=== PATIENT | female | born 1945 | race Caucasian/White ===

== ENCOUNTER 2019-08-28 09:53 | Emergency (ER) | payer MEDICARE, OTHER ==
[~2019-08-28] VITALS: Ht 152.4 cm; Wt 62.4 kg
[~2019-08-28 09:53] MED LIST: AMLO-150 PO; ASCO10004 PO; ASPI325T17 PO; CHOL200024 PO; DIAZ10TA PO; DICL100G19 TP; ESTROGEN-METHYLTEST PO; FLUTICASONE NAS; HYDR1TAB13 PO; HYDR50TA3; LAXATIVE PO; LEVO150C2 PO; LORA0.5T; LORA0.5T PO; MILK THISTLE PO; OMEG1CAP6 PO; OMEP-110 PO; OXYC-307 PO; PHEN37.53 PO; POTA10TA11 PO; SERT100T PO; SIMV40TA; SIMV40TA20 PO; TRIA1CAP3 PO; TURMERIC PO; VITAMIN B-12 PO
[2019-08-28 10:05] VITALS: BP 151/67
--- NOTE | 2019-08-28 10:42 | NUR ---
PT C/O LEFT FOOT AND LOWER EXTREMITY NUMBNESS WITH SHARP NERVE TYPE PAIN. 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 PAIN AND NUMBNESS WORSE THAN NORMAL.
[2019-08-28] MEDS ORDERED: HYDROcodone/APAP 5/325 TABLET PO PRN (11:00)
[2019-08-28] MEDS ORDERED: HYDROcodone/APAP 5/325 TABLET ONE (11:15)
== END 2019-08-28 12:33 | disposition home or self-care (01) ==
LOC: ED 12:27
DX: M79.672 Pain in left foot (principal); I10 Essential (primary) hypertension; E78.5 Hyperlipidemia, unspecified; E03.9 Hypothyroidism, unspecified; Z90.710 Acquired absence of both cervix and uterus; Z90.89 Acquired absence of other organs
CPT/HCPCS: 99283

== ENCOUNTER 2020-06-07 15:12 | Emergency (ER) | payer MEDICARE ==
[~2020-06-07] VITALS: Ht 152.4 cm; Wt 62.7 kg
[~2020-06-07 15:12] MED LIST changes: +ASCO100018 PO; -ASCO10004 PO
--- NOTE | 2020-06-07 15:43 | NUR ---
PATIENT WALKED BACK FROM TRIAGE WITH CHIEF C/O COVID + LAST WEEK. PATIENT STARTED ABX 5 DAYS AGO, AND SYMPTOMS HAVE NOT GOTTEN BETTER PER PATIENT. PATIENT HAD CHEST XRAY DONE THIS MORNING THAT SHOWED "PNEUMONIA." PATIENT'S O2 SATURATION IS 94% ON RA. ERMD AT BEDSIDE FOR EVALUATION./
[2020-06-07] MEDS ORDERED: AZITHROMYCIN 500 MG TABLET PO ONE (16:00)
--- NOTE | 2020-06-07 16:22 | NUR ---
PATIENT TO IMAGING.
[2020-06-07] MEDS ORDERED: AZITHROMYCIN 250 MG TABLET ONE (16:27)
[2020-06-07] MEDS ORDERED: CEFTRIAXONE 1,000 MG ONE ×2 (17:21→17:25)
[2020-06-07] MEDS ORDERED: CEFTRIAXONE 1,000 MG IM ONE (17:30)
--- NOTE | 2020-06-07 17:37 | NUR ---
REPORT GIVEN TO CHRISSY PARKS
[2020-06-07 18:01] VITALS: BP 142/67
--- NOTE | 2020-06-07 18:02 | NUR ---
Patient and spouse given discharge instructions and prescription and they have confirmed that they understand the instructions. Patient ambulatory with steady gait from ED to private vehicle.
== END 2020-06-07 18:03 | disposition home or self-care (01) ==
LOC: ED 16:26
DX: U07.1 COVID-19 (principal); J18.9 Pneumonia, unspecified organism; R05 Cough; I10 Essential (primary) hypertension; E03.9 Hypothyroidism, unspecified; R53.83 Other fatigue; R06.02 Shortness of breath
CPT/HCPCS: 71046; 96372; 99283; J0696

== ENCOUNTER → 2020-11-20 | Outpatient (CLI) | payer MEDICARE ==
[~2020-11-20] MED LIST changes: -HYDR50TA3; +HYDR50TA6; -OXYC-307 PO; +OXYC-380 PO
== END | disposition home or self-care (01) ==
LOC: CFH 12:25 → EDSTATUS 12:30
PROVIDERS: ATTEND Orthopaedic Surgery
DX: M17.12 Unilateral primary osteoarthritis, left knee (principal)

== ENCOUNTER → 2020-12-23 | Outpatient (CLI) | payer MEDICARE ==
[~2020-12-23] MED LIST changes: +BUPR150T73 PO; +GABA300C PO; +GINGER PO; +HYDR-2214 PO; +MAGNESIUM PO; +MELO15TA24 PO; +MULT-658 PO; +ZINC PO; +[UNRECOGNIZED DRUG - OTHER] PO
[2020-12-23 11:37] LABS: ANION GAP 5 mmol/L (5-15); CALCIUM 9.7 mg/dL (8.5-10.1); CHLORIDE 109 mmol/L (98-107)
[2020-12-23 11:40] LABS: ALANINE AMINOTRANSFERASE 27 U/L (12-78); ALKALINE PHOSPHATASE 65 U/L (45-117); BILIRUBIN,TOTAL 0.4 mg/dL (0.2-1.0); CREATININE 0.85 mg/dL (0.55-1.02); TOTAL PROTEIN 7.5 g/dL (6.4-8.2)
== END | disposition home or self-care (01) ==
LOC: STAR 10:05
PROVIDERS: ATTEND Orthopaedic Surgery
DX: Z01.818 Encounter for other preprocedural examination (principal); M65.321 Trigger finger, right index finger; G56.01 Carpal tunnel syndrome, right upper limb
CPT/HCPCS: 36415; 80053; 93005

== ENCOUNTER 2021-01-01 10:57 | Day surgery (SDC) | payer MEDICARE ==
[~2021-01-01] VITALS: Ht 149.9 cm; Wt 64.0 kg
[2021-01-01 11:26] VITALS: BP 164/89
[2021-01-01] MEDS ORDERED: LACTATED RINGERS 1,000 ML IV SCH (11:30)
[2021-01-01] MEDS ORDERED: CHLORHEXIDINE 15 ML UDC ONE (11:36)
[2021-01-01] MEDS ORDERED: CHLORHEXIDINE 15 ML UDC PO ONE (12:00)
[2021-01-01] MEDS ORDERED: EPINEPHRINE 1 MG/ML, 1ML ONE (12:14)
[2021-01-01] MEDS ORDERED: BUPIVACAINE/PF 0.5% ONE (12:14)
[2021-01-01] MEDS ORDERED: HYDROmorphone 1 MG/ML, 1ML INJ IVPush PRN (14:00)
[2021-01-01] MEDS ORDERED: EPHEDRINE 50 MG/ML, 1ML IVPush PRN (14:00)
[2021-01-01] MEDS ORDERED: FENTANYL PF 100 MCG/2ML IV PRN (14:00)
[2021-01-01] MEDS ORDERED: METHOCARBAMOL 1,000 MG in DEXTROSE 5% 100 ML IV PRN (14:00)
[2021-01-01] MEDS ORDERED: hydrALAzine 20 MG/ML, 1ML IV PRN (14:00)
[2021-01-01] MEDS ORDERED: LABETALOL 5MG/ML, 20ML IV PRN (14:00)
[2021-01-01] MEDS ORDERED: ACETAMINOPHEN 325 MG TABLET PO PRN (14:00)
[2021-01-01] MEDS ORDERED: ONDANSETRON 2MG/ML, 2ML IVPush PRN (14:00)
[2021-01-01] MEDS ORDERED: OXYcodone 5 MG/5 ML ORAL.SOL UDC PO PRN (14:00)
[2021-01-01] MEDS ORDERED: LORazepam 2 MG/ML, 1ML IVPush PRN (14:00)
[2021-01-01] MEDS ORDERED: PROMETHAZINE 25 MG/ML, 1ML IVPush PRN (14:00)
[2021-01-01] MEDS ORDERED: FENTANYL PF 250 MCG/5ML ONE (14:20)
[2021-01-01] MEDS ORDERED: PROPOFOL 10 MG/ML, 20ML ONE (17:53)
== END 2021-01-01 15:15 | disposition home or self-care (01) ==
LOC: OUT 10:57
PROVIDERS: ATTEND Orthopaedic Surgery
DX: G56.01 Carpal tunnel syndrome, right upper limb (principal); M65.321 Trigger finger, right index finger; M65.331 Trigger finger, right middle finger; M19.90 Unspecified osteoarthritis, unspecified site; G47.30 Sleep apnea, unspecified; Z88.8 Allergy status to other drugs, medicaments and biological substances; Z79.899 Other long term (current) drug therapy; Z87.891 Personal history of nicotine dependence; Z20.822 Contact with and (suspected) exposure to COVID-19
CPT/HCPCS: 26055; 29848; J0171; J2704; J3010; J7120; U0003; U0005